=== PATIENT | male | born 1970 | race Caucasian/White ===

== ENCOUNTER 2023-05-04 09:42 | Emergency (ER) | payer OTHER, SELFPAY ==
[2023-05-04 09:47] VITALS: BP 191/120; RESP 97; TEMP 36.5; O2SAT 86; BMI 30.4
--- NOTE | 2023-05-04 10:00 | W.ED.UPPEXIN ---
HPI - Extremity Injury (Upper) General: Chief Complaint: Extremity Injury, Upper Stated Complaint: work comp injury, right shoulder pain Time Seen by Provider: 05/04/23 09:46 Source: patient Mode of arrival: ambulatory Limitations: no limitations History of Present Illness: Patient is a nice 52-year-old male who presents to ED today with a concern for a biceps tendon rupture. 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 Patient states since then he has noticed pain and edema. MD complaint: injury to: right, shoulder and arm Onset (ago): hour(s) Other Extremity Injury: Right: arm and shoulder Other injuries: none Handedness: right Place: work Severity: moderate Relieving factors: immobilization Exacerbating factors: movement of extremity Associated symptoms: Reports no associated symptoms; Denies neck pain or weakness in extremities Review of Systems Musc: Reports: extremity pain and limited range of motion; Denies: neck pain, back pain or joint swelling Neuro: Denies: numbness in extremities, weakness in extremities or sensory changes Physical Exam Const: COMMON NORMALS: no acute distress, average body habitus, patient oriented x3, no limitations, healthy appearing, alert and well nourished Extremity: COMMON NORMALS: capillary refill normal, no joint enlargement, no clubbing, cyanosis or edema and no pedal edema GENERAL: Yes normal exam except as noted RIGHT UPPER EXTREMITY: Yes shoulder joint Right shoulder: Yes Right shoulder joint neurovascular exam (normal) and Yes upper arm OTHER: pt has pain to proximal bicep tendon along with proximal upper arm swelling; + Speed's Neuro: COMMON NORMALS: patient oriented x3, moves all extremities, no focal motor deficits and no sensory deficits noted SENSORIUM/ORIENTATION: Yes alert Course Vital Signs: Vital signs: Vital Signs Temperature 97.7 F 05/04/23 09:47 Respiratory Rate 97 H 05/04/23 09:47 Blood Pressure 191/120 05/04/23 09:47 Pulse Oximetry 86 L 05/04/23 09:47 Oxygen Delivery Me thod Room Air 05/04/23 09:47 MDM - Extremity Injury (Upper) Medical Decision Making Discussed US imaging but ultimately I think he will require MRI. Called MRI to see when we could get this set up as an outpatient and they actually had an opening immediately. MRI was ordered and patient was discharged from the ED and will go straight there. Dr. Pak here speaking to patient and he was consulted on proper ordering of testing (i.e concern for proximal vs distal rupture) and is walking patient over to MRI. He will follow up with Worker's Comp. 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 Peralta/Unique/Saul following MRI results. No radiology studies performed this visit Discharge Plan Discharge Patient Disposition: Home Clinical Impression: Traumatic rupture of right proximal biceps tendon Qualifiers: Encounter type: initial encounter Qualified Code(s): S46.211A - Strain of muscle, fascia and tendon of other parts of biceps, right arm, initial encounter Condition: Stable Prescriptions: No Action No Known Home Medications Discharge Orders: Discharge ED (Routine); Ordered 05/04/23 Ordered By: Cristy Isbell Activity Restrictions/Additional Instructions: Follow-up with Worker's Comp. as directed. Coding Level of Care Code ED Disability Services Coordinator for Dilan Gonzales
--- NOTE | 2023-05-04 10:27 | MR_ITS ---
WS: [id number] MRI RIGHT SHOULDER NONCONTRAST TECHNIQUE: Sagittal T2, coronal T1, T2 and proton density imaging. Axial gradient PDE imaging. CLINICAL INFORMATION: concern for proximal bicep rupture/tear COMPARISON: None. FINDINGS: Advanced degenerative arthritis at the AC joint with downsloping of the acromion. Subacromial spurrin g. Fluid and edema at the AC joint. Marked narrowing of the subacromial space with chronic appearing thinning of the supraspinatus. High-grade tear of the supraspinatus with chronic thinning. Distal ten don appears intact. Normal infraspinatus and teres minor. Subscapularis appears intact. Diminutive biceps tendon in the bicipital groove. Fluid and edema in the mid biceps tendon in the bic ipital groove consistent with high-grade tear. In addition, edematous intra-articular biceps tendon i n the rotator interval with T2 signal abnormality compatible with tendinopathy and high-grade tear. S ome of this may be due to tendon retraction. This is most pronounced at the level of the biceps howie l anchor. Degenerative fraying of the glenoid labrum. Moderate degenerative narrowing of the glenohumeral joint . Small joint effusion. Small amount of fluid in the subcoracoid bursa. Distal biceps tendon is intac t at the radial tuberosity in the elbow. IMPRESSION: 1. Advanced degenerative arthritis AC joint with marked narrowing of the subacromial space. Subacrom ial spurring with impingement on the supraspinatus. 2. Chronic appearing thinning with high-grade tear of the supraspinatus. Distal tendon appears intac t. 3. Rotator cuff is otherwise intact. 4. Diffuse edema and high-grade tear involving the intra-articular biceps tendon in the rotator inte rval with suspected proximal tendon retraction. Proximal bicipital groove is essentially empty likely due to tendon retraction. 5. Diminutive biceps tendon in the bicipital groove with T2 signal normality and fluid in the mid te ndon compatible with high-grade tear. Distal tendon appears intact. 6. Moderate degenerative narrowing of the glenohumeral joint. 7. Small joint effusion.
== END 2023-05-04 10:35 | disposition home or self-care (01) ==
PROVIDERS: Emergency Provider Physician Assistant
DX: S46.211A Strain of muscle, fascia and tendon of other parts of biceps, right arm, initial encounter (principal); X50.9XXA Other and unspecified overexertion or strenuous movements or postures, initial encounter; Y93.F2 Activity, caregiving, lifting; Y92.234 Operating room of hospital as the place of occurrence of the external cause; Y99.0 Civilian activity done for income or pay
CPT/HCPCS: 73221; 99284